=== PATIENT | male | born 1980 | race Caucasian/White ===

== ENCOUNTER 2021-02-24 19:47 | Emergency (ER) | payer SELFPAY ==
[~2021-02-24] VITALS: Ht 172.7 cm; Wt 79.0 kg
[2021-02-24 21:50] LABS: BASOPHILS % 0.6 % (0.0-2.0); EOSINOPHILS % 0.6 % (0.0-5.0); HEMATOCRIT. 48.7 % (42.0-52.0); HEMOGLOBIN. 16.8 g/dL (14.0-18.0); LYMPHOCYTES % 31.1 % (20.0-50.0); MEAN CORPUSCULAR HEMOGLOBIN 32.1 pg (28.0-32.0); MEAN CORPUSCULAR VOLUME 93.2 fL (80.0-94.0); MEAN PLATELET VOLUME 7.7 fl (7.4-10.4); MONOCYTES % 12.8 % (2.0-8.0); NEUTROPHILS % 54.9 % (40.0-76.0); PLATELET 225 x1000/uL (130-400); RED BLOOD CELL COUNT 5.23 mill/uL (4.7-6.1); RED CELL DISTRIBUTION WIDTH 14.3 % (11.6-14.6)
[2021-02-24 21:56] LABS: CHLORIDE 109 mEq/L (98-107)
[2021-02-24 22:18] LABS: ETHANOL BLOOD 384 mg/dL
[2021-02-24] MEDS ORDERED: ONDA4TAB5 MT (23:58)
[2021-02-25 01:09] VITALS: BP 160/95
== END 2021-02-25 01:10 | disposition home or self-care (01) ==
LOC: ER 19:47
DX: F10.129 Alcohol abuse with intoxication, unspecified (principal); Y90.8 Blood alcohol level of 240 mg/100 ml or more
CPT/HCPCS: 36415; 80053; 80307; 80320; 80329; 85025; 99283; G0480